=== PATIENT | male | born 1995 | race American Indian/Alaskan Native ===

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

== ENCOUNTER 2021-03-01 16:12 | Observation (INO) | payer SELFPAY ==
[2021-03-01] MEDS ORDERED: SODIUM CHLORIDE 0.9% 1000 ML 1,000 ML IV ONE ×2 (16:43→21:23)
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
[2021-03-01 18:21] LABS: Basophils % (Auto) 0.9 % (0.0-1.8); Eosinophils % (Auto) 0.9 % (0.0-4.3); Hematocrit 47.7 % (35.5-45.6); Lymphocytes # (Auto) 2.1 K/mm3 (1.2-5.4); Lymphocytes % (Auto) 44.6 % (13.4-35.0); Mean Corpuscular HGB Conc 32 % (32-34); Mean Corpuscular Volume 87 fl (84-94); Monocytes # (Auto) 0.5 K/mm3 (0.0-0.8); Monocytes % (Auto) 11.4 % (0.0-7.3); Platelet Count 181 K/mm3 (140-440); Red Cell Distribution Width 13.6 % (13.2-15.2)
[2021-03-01 18:44] LABS: Alanine Aminotransferase 21 units/L (7-56); Albumin 4.7 g/dL (3.9-5); BUN/Creatinine Ratio 17; Blood Urea Nitrogen 15 mg/dL (9-20); Calcium 9.4 mg/dL (8.4-10.2); Hemolysis Index 12
[2021-03-01 19:01] LABS: Bilirubin,Urine NEG (Negative); Blood,Urine NEG (Negative); Color,Urine Yellow (Yellow); Mucus,Urine FEW /HPF; Protein,Urine <15 mg/dL mg/dL (Negative); Urobilinogen,Urine < 2.0 mg/dL (<2.0)
--- NOTE | 2021-03-01 20:31 | Cat Scan Report ---
CT ABDOMEN AND PELVIS WITH CONTRAST INDICATION / CLINICAL INFORMATION: Lower abdominal pain, decreased stool output. TECHNIQUE: Axial CT images were obtained through the abdomen and pelvis after 100 cc Omnipaque [address] scans at this location are performed using CT dose reduction for ALARA by means of automated exposure control. COMPARISON: None available. FINDINGS: LOWER CHEST: No significant abnormality. LIVER: No significant abnormality. GALLBLADDER: No significant abnormality. BILE DUCTS: No significant abnormality. PANCREAS: No significant abnormality. SPLEEN: No significant abnormality. ADRENALS: No significant abnormality. RIGHT KIDNEY / URETER: No significant abnormality. LEFT KIDNEY / URETER: No significant abnormality. STOMACH / SMALL BOWEL: There is a small bowel intussusception in the left hemiabdomen as seen on seri es 2 image 55 and series 601 image 41. No other findings of obstruction.. No pneumatosis. COLON: No significant abnormality. APPENDIX: No significant abnormality. PERITONEUM: No free fluid. No free air. No fluid collection. LYMPH NODES: No significant adenopathy. AORTA / ARTERIES: No significant abnormality. IVC / VEINS: No significant abnormality. URINARY BLADDER: No significant abnormality. REPRODUCTIVE ORGANS: No significant abnormality. ADDITIONAL FINDINGS: None. SKELETAL SYSTEM: No acute abnormality. Mild scoliosis of thoracolumbar spine. IMPRESSION: 1. Small bowel intussusception in the left hemiabdomen. No other findings of obstruction, free air, o r pneumatosis. Signer Name: Edmar Gutierrez MD Signed: 03/01/2021 8:26 PM Workstation Name: [id number]
[2021-03-01] MEDS ORDERED: ONDANSETRON 4 MG/2 ML INJ IV PRN (23:43)
[2021-03-01] MEDS ORDERED: HYDROmorphone 1 MG/1 ML INJ IV PRN (23:43)
[2021-03-01] MEDS ORDERED: MORPHINE 2 MG/1 ML INJ IV PRN (23:43)
[2021-03-01] MEDS ORDERED: ALBUTEROL 2.5 MG/3 ML NEBU IH PRN (23:43)
[2021-03-01] MEDS ORDERED: ACETAMINOPHEN 325 MG TAB PO PRN (23:43)
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
[2021-03-02] MEDS: IPRATROPIUM/ALBUTEROL SULFATE 3 ML AMPUL.NEB IH SCH ×3 (03:08→14:00)
[2021-03-02 06:22] LABS: BUN/Creatinine Ratio 13; Blood Urea Nitrogen 12 mg/dL (9-20); Calcium 9.1 mg/dL (8.4-10.2); Hemolysis Index 6
[2021-03-02 06:28] LABS: Basophils % (Auto) 0.7 % (0.0-1.8); Eosinophils # (Auto) 0.1 K/mm3 (0.0-0.4); Eosinophils % (Auto) 1.2 % (0.0-4.3); Hematocrit 44.8 % (35.5-45.6); Hemoglobin 14.3 gm/dl (11.8-15.2); Lymphocytes # (Auto) 2.6 K/mm3 (1.2-5.4); Lymphocytes % (Auto) 51.6 % (13.4-35.0); Mean Corpuscular HGB Conc 32 % (32-34); Mean Corpuscular Volume 87 fl (84-94); Monocytes # (Auto) 0.5 K/mm3 (0.0-0.8); Monocytes % (Auto) 9.9 % (0.0-7.3); Platelet Count 174 K/mm3 (140-440); Red Blood Count 5.18 M/mm3 (3.65-5.03); Red Cell Distribution Width 13.6 % (13.2-15.2)
[2021-03-02] MEDS: D5W/0.45% NACL 1,000 ML IV SCH (09:44)
[2021-03-02] MEDS: FAMOTIDINE 20 MG/2 ML INJ IV SCH (09:44)
[2021-03-02] MEDS: HEPARIN 5,000 UNIT/1 ML VIAL SUB-Q SCH (09:45)
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
--- NOTE | 2021-03-02 13:52 | Progress Note ---
Assessment and Plan Assessment and plan: --Left small bowel intussusception Current Visit: Yes Status: Acute Surgery evaluation noted and appreciated Recommended upper GI with small bowel follow-through study If negative so so no surgical intervention if exam shows continued intussuscepted small bowel recommend diagnostic laparoscopy to evaluate segment of small bowel with possible small bowel resection. IV Pepcid, clear liquids Surgery following --Tobacco abuse Current Visit: Yes Status: Acute Smoking cessation counseling done Risks and consequences of long-term tobacco use explained to the patient Also advised nicotine patch if needed Spent 15 minutes counseling the patient i -- DVT prophylaxis Current Visit: Yes Status: Acute Subcu heparin. Patient is a full code Plan of care reviewed with the patient and his nurse Consults noted and appreciated Closely monitor the patient and adjust the management as needed Disposition; per surgery History Interval history: I have seen and examined the patient at the bedside in ER awaiting placement Patient's chart and medications reviewed Patient complains of vague abdominal discomfort Denies nausea vomiting Hospitalist Physical - Constitutional Vitals: Temp Pulse Resp BP Pulse Ox 97.7 F 60 13 118/60 99 03/02/21 03:19 03/02/21 13:01 03/02/21 13:01 03/02/21 13:01 03/02/21 13:01 General appearance: Present: no acute distress, well-nourished - EENT Eyes: Present: PERRL, EOM intact - Neck Neck: Present: supple, normal ROM - Respiratory Respiratory effort: normal Respiratory: bilateral: diminished, negative: rales, rhonchi, wheezing - Cardiovascular Rhythm: regular Heart Sounds: Present: S1 & S2 - Extremities Extremities: no ischemia, No edema - Abdominal General gastrointestinal: soft, tender (No guarding no rigidity), non-distended, hypoactive bowel sounds - Integumentary Integumentary: Present: clear, warm - Psychiatric Psychiatric: appropriate mood/affect, cooperative - Neurologic Neurologic: moves all extremities Results - Labs CBC & Chem 7: 03/02/21 05:36 03/02/21 05:36 Labs: Laboratory Last Values WBC 5.0 K/mm3 (4.5-11.0) 03/02/21 05:36 RBC 5.18 M/mm3 (3.65-5.03) H 03/02/21 05:36 Hgb 14.3 gm/dl (11.8-15.2) 03/02/21 05:36 Hct 44.8 % (35.5-45.6) 03/02/21 05:36 MCV 87 fl (84-94) 03/02/21 05:36 MCH 28 pg (28-32) 03/02/21 05:36 MCHC 32 % (32-34) 03/02/21 05:36 RDW 13.6 % (13.2-15.2) 03/02/21 05:36 Plt Count 174 K/mm3 (140-440) 03/02/21 05:36 Lymph % (Auto) 51.6 % (13.4-35.0) H 03/02/21 05:36 [place] % (Auto) 9.9 % (0.0-7.3) H 03/02/21 05:36 Eos % (Auto) 1.2 % (0.0-4.3) 03/02/21 05:36 Baso % (Auto) 0.7 % (0.0-1.8) 03/02/21 05:36 Lymph # (Auto) 2.6 K/mm3 (1.2-5.4) 03/02/21 05:36 [place] # (Auto) 0.5 K/mm3 (0.0-0.8) 03/02/21 05:36 Eos # (Auto) 0.1 K/mm3 (0.0-0.4) 03/02/21 05:36 Baso # (Auto) 0.0 K/mm3 (0.0-0.1) 03/02/21 05:36 Seg Neutrophils % 36.6 % (40.0-70.0) L 03/02/21 05:36 Seg Neutrophils # 1.8 K/mm3 (1.8-7.7) 03/02/21 05:36 Sodium 138 mmol/L (137-145) 03/02/21 05:36 Potassium 3.9 mmol/L (3.6-5.0) 03/02/21 05:36 Chloride 104.2 mmol/L (98-107) 03/02/21 05:36 Carbon Dioxide 25 mmol/L (22-30) 03/02/21 05:36 Anion Gap 13 mmol/L 03/02/21 05:36 BUN 12 mg/dL (9-20) 03/02/21 05:36 Creatinine 0.9 mg/dL (0.8-1.3) 03/02/21 05:36 Estimated GFR > 60 ml/min 03/02/21 05:36 BUN/Creatinine Ratio 13 % 03/02/21 05:36 Glucose 89 mg/dL (75-100) 03/02/21 05:36 Calcium 9.1 mg/dL (8.4-10.2) 03/02/21 05:36 Total Bilirubin 1.00 mg/dL (0.1-1.2) 03/01/21 17:32 AST 23 units/L (5-40) 03/01/21 17:32 ALT 21 units/L (7-56) 03/01/21 17:32 Alkaline Phosphatase 64 units/L (35-129) 03/01/21 17:32 Total Protein 7.5 g/dL (6.3-8.2) 03/01/21 17:32 Albumin 4.7 g/dL (3.9-5) 03/01/21 17:32 Albumin/Globulin Ratio 1.7 % 03/01/21 17:32 Lipase 62 units/L (13-60) H 03/01/21 17:32 Urine Color Yellow (Yellow) 03/01/21 17:23 Urine Turbidity Clear (Clear) 03/01/21 17:23 Urine pH 5.0 (5.0-7.0) 03/01/21 17:23 Ur Specific [place] 1.025 (1.003-1.030) 03/01/21 17:23 Urine Protein <15 mg/dl mg/dL (Negative) 03/01/21 17:23 Urine Glucose (UA) Neg mg/dL (Negative) 03/01/21 17:23 Urine Ketones Neg mg/dL (Negative) 03/01/21 17:23 Urine Blood Neg (Negative) 03/01/21 17:23 Urine Nitrite Neg (Negative) 03/01/21 17:23 Urine Bilirubin Neg (Negative) 03/01/21 17:23 Urine Urobilinogen < 2.0 mg/dL (<2.0) 03/01/21 17:23 Ur Leukocyte Esterase Neg (Negative) 03/01/21 17:23 Urine WBC (Auto) 1.0 /HPF (0.0-6.0) 03/01/21 17:23 Urine RBC (Auto) 1.0 /HPF (0.0-6.0) 03/01/21 17:23 Urine Mucus Few /HPF 03/01/21 17:23 Active Medications - Current Medications Current Medications: Generic Name Dose Route Start Last Admin Trade Name Freq PRN Reason Stop Dose Admin Acetaminophen 650 mg 03/01/21 23:43 Acetaminophen 325 Mg Tab PO Q4H PRN Pain MILD(1-3)/Fever >100.5/MYRCIK Albuterol 2.5 mg 03/01/21 23:43 Albuterol 2.5 Mg/3 Ml Nebu IH Q4HRT PRN Shortness Of Breath Albuterol/Ipratropium 1 ampul 03/02/21 02:00 03/02/21 09:46 Ipratropium/Albuterol Sulfate 3 Ml Ampul.Neb IH 1 ampul Q6HRT [facility]O Administration Famotidine 20 mg 03/02/21 10:00 03/02/21 09:44 Famotidine 20 Mg/2 Ml Inj IV 20 mg BID [facility]ERARDO Administration Heparin Sodium (Porcine) 5,000 unit 03/02/21 10:00 03/02/21 09:45 Heparin 5,000 Unit/1 Ml Vial SUB-Q 5,000 unit Q12HR [facility]O Administration Hydromorphone HCl 0.5 mg 03/01/21 23:43 03/02/21 04:13 Hydromorphone 1 Mg/1 Ml Inj IV 0.5 mg Q3H PRN Administration Pain , Severe (7-10) Dextrose/Sodium Chloride 1,000 mls @ 100 mls/hr 03/01/21 23:45 03/02/21 09:44 D5/0.45ns IV 100 mls/hr DIRECT EVERARDO Administration Morphine Sulfate 2 mg 03/01/21 23:43 03/02/21 09:44 Morphine 2 Mg/1 Ml Inj IV 2 mg Q4H PRN Administration Pain, Moderate (4-6) Ondansetron HCl 4 mg 03/01/21 23:43 Ondansetron 4 Mg/2 Ml Inj IV Q8H PRN Nausea And Vomiting Sodium Chloride 10 ml 03/02/21 10:00 03/02/21 09:45 Sodium Chloride 0.9% 10 Ml Flush Syringe IV 10 ml BID [facility]ERARDO Administration Sodium Chloride 10 ml 03/01/21 23:43 Sodium Chloride 0.9% 10 Ml Flush Syringe IV PRN PRN LINE FLUSH
[2021-03-03] MEDS: FAMOTIDINE 20 MG/2 ML INJ IV SCH ×2 (00:49→11:05)
[2021-03-03] MEDS: HEPARIN 5,000 UNIT/1 ML VIAL SUB-Q SCH ×2 (00:49→09:35)
[2021-03-03 08:10] LABS: BUN/Creatinine Ratio 10; Blood Urea Nitrogen 10 mg/dL (9-20); Calcium 9.3 mg/dL (8.4-10.2); Hemolysis Index 7
[2021-03-03] MEDS: D5W/0.45% NACL 1,000 ML IV SCH (11:04)
--- NOTE | 2021-03-03 11:13 | Fluoroscopy Report ---
SMALL BOWEL FOLLOW-THROUGH HISTORY: follow up intussusception seen on CT. Abdominal pain TECHNIQUE: Single contrast barium technique utilized to evaluate the small bowel. FINDINGS: Small bowel transit time was one hour which is normal. No fold thickening, mass, mass eff ect, stenosis, or obstruction. The terminal ileum is normal in appearance. Previously described prox imal small bowel intussusception seen on recent CT is not demonstrated on small bowel follow-through. IMPRESSION: Unremarkable exam. FLUOROSCOPIC TIME: 0.4 minutes NUMBER OF FLUOROSCOPIC IMAGES: 4 Signer Name: Frankie Harrington Jr, MD Signed: 03/03/2021 11:09 AM Workstation Name: [id number]
--- NOTE | 2021-03-03 14:03 | Discharge Summary ---
Providers - Providers Date of Admission: 03/01/21 23:43 Attending physician: HIWOT BONDS MD 03/01/21 21:11 Consult to Physician [CONS] Urgent Comment: Dr. Lorenz spoke with Dr. Suarez @ [id number] Consulting Provider: TOYA SUAREZ Physician Instructions: Reason For Exam: Abdominal pain, intussusception on CT [facility] Hospitalization Condition: Fair Exam - Constitutional Vitals: Temp Pulse Resp BP Pulse Ox 97.9 F 50 L 24 97/76 96 03/03/21 00:58 03/03/21 07:20 03/03/21 07:20 03/03/21 07:20 03/03/21 12:18 Plan Care Plan Goals: Follow-up with your primary care provider. If you experience abdominal pain like he did this time, please report to the emergency department. Follow up with: ROGERS MCNAMARA MD [Primary Care Provider] - 3-5 Days
--- NOTE | 2021-03-03 15:39 | Progress Note ---
Assessment and Plan 25-year-old male with transient intussusception seen on CT scan. Abdominal pain has resolved along with an unremarkable small bowel follow-through that showed no persistent small bowel intussusception. Patient is afebrile and stable with no surgical intervention warranted at this time. Patient was started on clear liquids and advance as tolerated. Of note patient complains of continued back pain for which she seen his pain specialist. Patient is advised to follow-up with the specialist. No need to follow-up with me in general surgery. If abdominal pain returns and he returned to the emergency room and repeat CT scan shows intussusception. A diagnostic laparoscopy to examine the area would be indicated at that time. Patient expressed understanding. Subjective Date of service: 03/03/21 Narrative: No acute events overnight. Patient had a small bowel follow-through this morning that was unremarkable. There was no intussusception seen on imaging and no signs obstruction. Contrast reaches terminal ileum and less than an hour. Patient denies any nausea or vomiting. He denies any significant abdominal pain. He has been having bowel movements since the small bowel follow-through. Objective Vital Signs - 12hr 03/03/21 03/03/21 03/03/21 04:00 05:00 06:00 Pulse Rate 52 L 54 L 46 L Respiratory 23 25 H 15 Rate Blood Pressure 115/72 106/59 107/66 O2 Sat by Pulse 99 97 99 Oximetry 03/03/21 03/03/21 03/03/21 07:00 07:20 12:18 Pulse Rate 66 50 L Respiratory 15 24 Rate Blood Pressure 97/76 97/76 O2 Sat by Pulse 100 98 96 Oximetry - General physical appearance well developed, no distress, no pain - Eyes PERRL - Respiratory normal expansion, normal respiratory effort - Abdomen soft, not tender, not distended, not rebound, not guarding, not rigid - Neurologic normal coordination - Psychiatric oriented to time, oriented to person, oriented to place - Labs 03/02/21 05:36 03/03/21 07:38 Diabetes panel 03/03/21 Range/Units 07:38 Sodium 140 (137-145) mmol/L Potassium 3.5 L (3.6-5.0) mmol/L Chloride 100.8 (98-107) mmol/L Carbon Dioxide 25 (22-30) mmol/L BUN 10 (9-20) mg/dL Creatinine 1.0 (0.8-1.3) mg/dL Glucose 93 (75-100) mg/dL Calcium 9.3 (8.4-10.2) mg/dL Calcium panel 03/03/21 Range/Units 07:38 Calcium 9.3 (8.4-10.2) mg/dL Phosphorus 3.50 (2.5-4.5) mg/dL Pituitary panel 03/03/21 Range/Units 07:38 Sodium 140 (137-145) mmol/L Potassium 3.5 L (3.6-5.0) mmol/L Chloride 100.8 (98-107) mmol/L Carbon Dioxide 25 (22-30) mmol/L BUN 10 (9-20) mg/dL Creatinine 1.0 (0.8-1.3) mg/dL Glucose 93 (75-100) mg/dL Calcium 9.3 (8.4-10.2) mg/dL Adrenal panel 03/03/21 Range/Units 07:38 Sodium 140 (137-145) mmol/L Potassium 3.5 L (3.6-5.0) mmol/L Chloride 100.8 (98-107) mmol/L Carbon Dioxide 25 (22-30) mmol/L BUN 10 (9-20) mg/dL Creatinine 1.0 (0.8-1.3) mg/dL Glucose 93 (75-100) mg/dL Calcium 9.3 (8.4-10.2) mg/dL
[2021-03-03 16:16] VITALS: BP 107/59
== END 2021-03-03 17:46 | disposition home or self-care (01) ==
LOC: ED 16:12 → 3A 23:43
PROVIDERS: ADMIT Hospitalist; ATTEND Student in an Organized Health Care Education/Training Program
DX: K56.1 Intussusception (principal); M54.50 Low back pain, unspecified; F17.210 Nicotine dependence, cigarettes, uncomplicated; Z79.899 Other long term (current) drug therapy; Z98.890 Other specified postprocedural states
CPT/HCPCS: 36415; 74177; 74240; 74248; 80048; 80053; 81001; 83690; 83735; 84100; 85025; 87591; 94640; 96361; 96372; 96374; 96375; 96376; 99285; G0378; J1170; J1644; J2270; J3490; J7070; Q9967